=== PATIENT | male | born 1965 | race Caucasian/White ===

== ENCOUNTER 2018-07-28 15:25 | Emergency (ER) | payer BC ==
[2018-07-28] MEDS: IBUPROFEN 800 MG TAB PO (17:58)
[2018-07-28] MEDS: HYDROCODONE/APAP (5/325) TAB PO (17:58)
[2018-07-28] MEDS: LOSARTAN 25 MG TAB PO (18:18)
[2018-07-28] MEDS: AMLODIPINE 10 MG TAB PO (18:19)
== END 2018-07-28 20:06 | disposition home or self-care (01) ==
LOC: E/R 15:25
DX: S92.014A Nondisplaced fracture of body of right calcaneus, initial encounter for closed fracture (principal); I10 Essential (primary) hypertension; I16.0 Hypertensive urgency; V00.831A Fall from motorized mobility scooter, initial encounter
CPT/HCPCS: 29515; 73610-RT; 73630; 99283-25

== ENCOUNTER 2018-08-17 05:31 | Observation (INO) | payer BC ==
[2018-08-17] MEDS ORDERED: DESFLURANE 15 MIN (07:00)
[2018-08-17] MEDS ORDERED: SUCCINYLCHOLINE CHLORIDE 100 MG/5 ML SYG IV (07:00)
[2018-08-17] MEDS ORDERED: PROPOFOL 20 ML (07:21)
[2018-08-17] MEDS ORDERED: CEFAZOLIN 1 GM INJ ×2 (07:21→08:26)
[2018-08-17] MEDS ORDERED: ROCURONIUM 50 MG INJ (07:21)
[2018-08-17] MEDS ORDERED: MIDAZOLAM 1 MG/ML 2 ML INJ ×2 (07:22)
[2018-08-17] MEDS ORDERED: HYDROmorphONE 2 MG/ML SYG ×2 (07:22→10:24)
[2018-08-17] MEDS ORDERED: ROPIVACAINE 0.5 % 30 ML VIAL ×2 (07:22→09:12)
[2018-08-17] MEDS ORDERED: EPHEDrine SULFATE 50 MG/5 ML SYG IV (08:00)
[2018-08-17] MEDS ORDERED: DIPHENHYDRAMINE 50 MG INJ IV (08:00)
[2018-08-17] MEDS ORDERED: DIPHENHYDRAMINE 25 MG CAP PO (08:00)
[2018-08-17] MEDS ORDERED: HYDROmorphONE 1 MG/5 ML IV SYRINGE IV ×2 (08:00)
[2018-08-17] MEDS ORDERED: ONDANSETRON 4 MG INJ IV ×2 (08:00)
[2018-08-17] MEDS ORDERED: FENTAnyl 50 MCG/ML VIAL IV ×2 (08:00)
[2018-08-17] MEDS ORDERED: OXYCODONE/ACETAMINOPHEN (5/325) TAB PO ×2 (08:00)
[2018-08-17] MEDS ORDERED: METOCLOPRAMIDE 10 MG INJ IV (08:00)
[2018-08-17] MEDS ORDERED: METOCLOPRAMIDE 10 MG INJ (08:26)
[2018-08-17] MEDS ORDERED: ONDANSETRON 4 MG INJ (08:26)
[2018-08-17] MEDS ORDERED: DEXAMETHASONE 4 MG/ML 1 ML INJ (08:26)
[2018-08-17] MEDS ORDERED: PHENYLephrine (100 MCG/ML) 5ML SYG (08:38)
[2018-08-17] MEDS: POLYMYXIN/BACITRACIN 1L IRRIG (09:01)
[2018-08-17] MEDS ORDERED: BACITRACIN/POLYMYXIN 28.35 GM OINT TOP (09:12)
[2018-08-17] MEDS: HETASTARCH 6% NACL 500 ML (09:30)
[2018-08-17] MEDS: CA CHLORIDE 10% 10 ML SYRINGE (09:56)
[2018-08-17] MEDS: THROMBIN 5000 UNIT VIAL (10:11)
[2018-08-17] MEDS ORDERED: SUGAMMADEX SODIUM 200 MG/2 ML VIAL IV (10:13)
[2018-08-17] MEDS: hydrALAzine 20 MG INJ IV ×2 (11:24→11:28)
[2018-08-17] MEDS: LABETALOL HCL 20MG INJ IV ×3 (11:27→11:32)
[2018-08-17] MEDS: MEPERIDINE 25 MG INJ IV (11:47)
[2018-08-17] MEDS: HYDROmorphONE 1 MG/5 ML IV SYRINGE IV (11:47)
[2018-08-17] MEDS: FENTAnyl 50 MCG/ML VIAL IV (11:49)
[2018-08-17 13:20] LABS: ALANINE AMINOTRANSFERASE 15 IU/L (13-69); ALBUMIN 3.5 g/dl (3.3-4.9); ALKALINE PHOSPHATASE 83 IU/L (42-121); ASPARTATE AMINO TRANSFERASE 16 IU/L (15-46); BILIRUBIN,INDIRECT 0.1 mg/dl (0-1.1); BILIRUBIN,TOTAL 0.1 mg/dl (0.2-1.3); MAGNESIUM 2.1 mg/dl (1.7-2.5); PHOSPHORUS 3.9 mg/dl (2.5-4.9); TOTAL PROTEIN 6.5 g/dl (6.1-8.1)
[2018-08-17] MEDS: HYDROmorphONE 1 MG/ML SYG IV ×2 (14:05→19:11)
[2018-08-17 15:56] LABS: ADD MAN DIFF? NO
[2018-08-17 15:57] LABS: ABNORMAL IP MESSAGE 1; BASOPHILS % 0.1 % (0.0-2.0); HEMATOCRIT 38.6 % (42.0-52.0); HEMOGLOBIN 12.8 g/dl (14.0-18.0); LYMPHOCYTES # 0.5 10^3/ul (0.8-2.9); MEAN CORPUSCULAR HEMOGLOBIN 30.2 pg (29.0-33.0); MEAN CORPUSCULAR HGB CONC 33.2 g/dl (32.0-37.0); MEAN PLATELET VOLUME 9.7 fl (7.4-10.4); MONOCYTE # 0.1 10^3/ul (0.3-0.9); MONOCYTES % 0.3 % (0.0-11.0); NEUTROPHIL # 15.8 10^3/ul (1.6-7.5); NEUTROPHILS % 96.2 % (39.0-77.0); PLATELET COUNT 348 10^3/UL (140-415); POSITIVE DIFF @See below; RED BLOOD COUNT 4.24 10^6/ul (4.70-6.10); RED CELL DISTRIBUTION WIDTH 12.1 % (11.5-14.5)
[2018-08-17 15:57] LABS: WHITE BLOOD COUNT 16.5 10^3/ul (4.8-10.8)
[2018-08-17] MEDS: oxyCODONE 5 MG TAB PO ×2 (16:14→23:10)
[2018-08-17 16:21] LABS: ANION GAP 9 (5-13); BLOOD UREA NITROGEN 35 mg/dl (7-20); CALCIUM 9.5 mg/dl (8.4-10.2); CARBON DIOXIDE 26 mmol/L (21-31); CHLORIDE 102 mmol/L (97-110); Estimated GFR 23 mL/min (>60); GLUCOSE 165 mg/dl (70-220); POTASSIUM 4.9 mmol/L (3.5-5.1); SODIUM 137 mmol/L (135-144)
[2018-08-17] MEDS ORDERED: CEFAZOLIN 1 GM/50 ML (PMX) 50 ML IVPB ×2 (18:00)
[2018-08-17] MEDS: CEFAZOLIN 1 GM/50 ML (PMX) 50 ML IVPB (20:12)
[2018-08-18] MEDS: oxyCODONE 5 MG TAB PO ×4 (04:48→19:00)
[2018-08-18 05:40] LABS: ADD MAN DIFF? NO
[2018-08-18 05:46] LABS: BASOPHILS % 0.1 % (0.0-2.0); HEMATOCRIT 37.3 % (42.0-52.0); HEMOGLOBIN 12.3 g/dl (14.0-18.0); LYMPHOCYTES # 0.8 10^3/ul (0.8-2.9); LYMPHOCYTES % 5.5 % (15.0-51.0); MEAN PLATELET VOLUME 10.2 fl (7.4-10.4); MONOCYTE # 0.5 10^3/ul (0.3-0.9); MONOCYTES % 3.1 % (0.0-11.0); NEUTROPHIL # 13.6 10^3/ul (1.6-7.5); NEUTROPHILS % 90.9 % (39.0-77.0); PLATELET COUNT 343 10^3/UL (140-415); RED CELL DISTRIBUTION WIDTH 12.1 % (11.5-14.5)
[2018-08-18 06:22] LABS: ANION GAP 10 (5-13); BLOOD UREA NITROGEN 37 mg/dl (7-20); CALCIUM 9.6 mg/dl (8.4-10.2); CARBON DIOXIDE 26 mmol/L (21-31); CHLORIDE 101 mmol/L (97-110); Estimated GFR 24 mL/min (>60); GLUCOSE 139 mg/dl (70-220); POTASSIUM 5.2 mmol/L (3.5-5.1); SODIUM 137 mmol/L (135-144)
[2018-08-18] MEDS: ALLOPURINOL 100 MG TAB PO (09:30)
[2018-08-18] MEDS: AMLODIPINE 10 MG TAB PO (09:31)
[2018-08-18] MEDS: HEPARIN 5,000 UNIT/1 ML VIAL SC ×2 (09:31→21:58)
[2018-08-18] MEDS: CEFAZOLIN 1 GM/50 ML (PMX) 50 ML IVPB (09:31)
[2018-08-18] MEDS: METOPROLOL 25 MG TAB PO ×2 (12:22→21:50)
[2018-08-18] MEDS: SOD CHLORIDE 0.9% 1,000 ML IV (12:22)
[2018-08-18 13:14] LABS: ADD UMIC YES; UR ASCORBIC ACID NEGATIVE (NEGATIVE); UR BILIRUBIN (Dip) NEGATIVE (NEGATIVE); UR BLOOD (Dip) 1+ mg/dL (NEGATIVE); UR CLARITY CLEAR (CLEAR); UR COLOR STRAW (YELLOW); UR GLUCOSE (Dip) 1+ mg/dL (NEGATIVE); UR KETONES (Dip) NEGATIVE (NEGATIVE); UR LEUKOCYTE ESTERASE (Dip) NEGATIVE Leu/ul (NEGATIVE); UR NITRITE (Dip) NEGATIVE (NEGATIVE); UR RBC 1 /HPF (0-5); UR SPECIFIC GRAVITY (Dip) 1.012 (1.003-1.030); UR TOTAL PROTEIN (Dip) 2+ mg/dl (NEGATIVE); UR UROBILINOGEN (Dip) NEGATIVE (NEGATIVE); UR WBC 1 /HPF (0-5)
[2018-08-18 13:27] LABS: AMPHETAMINE/METHAMPHETAMINE Negative (NEGATIVE); BARBITURATES Negative (NEGATIVE); BENZODIAZEPINES Positive (NEGATIVE); CANNABINOIDS Negative (NEGATIVE); COCAINE Negative (NEGATIVE); OPIATES Positive (NEGATIVE)
[2018-08-18] MEDS: HYDROmorphONE 1 MG/ML SYG IV (21:54)
[2018-08-19] MEDS: SOD CHLORIDE 0.9% 1,000 ML IV ×2 (02:05)
[2018-08-19] MEDS: HYDROmorphONE 1 MG/ML SYG IV (04:51)
[2018-08-19 05:43] LABS: ADD MAN DIFF? NO; BASOPHIL # 0.1 10^3/ul (0.0-0.1); BASOPHILS % 0.5 % (0.0-2.0); EOSINOPHILS # 0.1 10^3/ul (0.0-0.5); EOSINOPHILS % 0.6 % (0.0-7.0); HEMOGLOBIN 12.2 g/dl (14.0-18.0); LYMPHOCYTES # 2.6 10^3/ul (0.8-2.9); LYMPHOCYTES % 22.6 % (15.0-51.0); MEAN CORPUSCULAR HEMOGLOBIN 30.3 pg (29.0-33.0); MEAN PLATELET VOLUME 10.1 fl (7.4-10.4); MONOCYTE # 0.7 10^3/ul (0.3-0.9); MONOCYTES % 6.1 % (0.0-11.0); NEUTROPHILS % 69.7 % (39.0-77.0); PLATELET COUNT 323 10^3/UL (140-415); RED BLOOD COUNT 4.02 10^6/ul (4.70-6.10); RED CELL DISTRIBUTION WIDTH 12.2 % (11.5-14.5)
[2018-08-19 05:43] LABS: WHITE BLOOD COUNT 11.5 10^3/ul (4.8-10.8)
[2018-08-19 06:02] LABS: ANION GAP 11 (5-13); BLOOD UREA NITROGEN 36 mg/dl (7-20); CALCIUM 9.2 mg/dl (8.4-10.2); CARBON DIOXIDE 27 mmol/L (21-31); CHLORIDE 102 mmol/L (97-110); CREATININE 2.43 mg/dl (0.61-1.24); Estimated GFR 28 mL/min (>60); GLUCOSE 107 mg/dl (70-220); POTASSIUM 4.2 mmol/L (3.5-5.1); SODIUM 140 mmol/L (135-144)
[2018-08-19 06:15] LABS: CHOL/HDL RATIO 3.5 RATIO; HDL CHOLESTEROL 34 mg/dl (28-71); LDL CHOLESTEROL,CALCULATED 54 mg/dl; TRIGLYCERIDES 165 mg/dl (0-149)
[2018-08-19 06:15] LABS: CHOLESTEROL 121 mg/dl (100-200)
[2018-08-19 08:17] LABS: HEMOGLOBIN A1C 5.8 % (0-5.9)
[2018-08-19] MEDS: AMLODIPINE 10 MG TAB PO (09:24)
[2018-08-19] MEDS: METOPROLOL 25 MG TAB PO (09:24)
[2018-08-19] MEDS: oxyCODONE 5 MG TAB PO ×2 (09:24→18:10)
[2018-08-19] MEDS: ALLOPURINOL 100 MG TAB PO (09:24)
[2018-08-19] MEDS: HEPARIN 5,000 UNIT/1 ML VIAL SC (09:26)
== END 2018-08-19 19:25 | disposition home or self-care (01) ==
LOC: SDS 05:31 → REC 08:00 → MS1 12:26
DX: S92.031A Displaced avulsion fracture of tuberosity of right calcaneus, initial encounter for closed fracture (principal); S86.011A Strain of right Achilles tendon, initial encounter; M92.61 Juvenile osteochondrosis of tarsus, right ankle; M77.51 Other enthesopathy of right foot and ankle; I12.9 Hypertensive chronic kidney disease with stage 1 through stage 4 chronic kidney disease, or unspecified chronic kidney disease; N18.4 Chronic kidney disease, stage 4 (severe); Z88.0 Allergy status to penicillin; W05.1XXA Fall from non-moving nonmotorized scooter, initial encounter
CPT/HCPCS: 27652; 73650; 76775; 80048; 80061; 80076; 80307; 81001; 82306; 83036; 83735; 84100; 85025; 87040; 97116; 97161; 97530